=== PATIENT | male | born 1955 | race Caucasian/White ===

== ENCOUNTER → 2017-12-13 | Day surgery (SDC) | payer OTHER ==
[2017-12-10 10:45] VITALS: BMI 38.7
[~2017-12-13] MED LIST: MIDAZOLAM 2 MG/2 ML VIAL IVP ONE; PROPOFOL 10 MG/ML 20 ML VIAL IV ONE; SODIUM CHLORIDE 0.9% 500 ML IV ONE
[2017-12-13 12:38] VITALS: TEMP 97.6
--- NOTE | 2017-12-13 12:47 | CE ---
CARDIAC ELECTROPHYSIOLOGY REPORT DATE OF SERVICE: 12/13/2017 PROCEDURE: Electrical cardioversion. INDICATION: Persistent atrial fibrillation in a patient with hypertrophic nonobstructive cardiomyopathy and hypertension. PROCEDURE NOTE: Under the influence of ultra short-acting intravenous anesthetic agent with the attendance of the anesthesiologist, the patient was delivered a shock at 250 joules with anterior and posterior patches. He remained in atrial fibrillation and then a second shock of 300 joules was delivered in a synchronized fashion. He converted to sinus rhythm remained hemodynamically stable and neurologically intact. The cardioversion was successful on the second attempt. Patient will be on the same medications and I will discharge him later on today if he remains stable and ambulatory. He will be seen by me in the office on December 19. EKG revealed a sinus mechanism with PACs. Results were discussed with the patient's and patient also. CATHY / MERNA: [id number] /
[2017-12-13 13:06] LABS: Anion Gap 5 mmol/L; Blood Urea Nitrogen 18 mg/dL (9-20); Calcium 9.2 mg/dL (8.4-10.2); Carbon Dioxide 29 mmol/L (22-30); Chloride 107 mmol/L (98-107); Glucose 101 mg/dL (74-99); Potassium 4.2 mmol/L (3.5-5.1); Sodium 141 mmol/L (137-145)
[2017-12-13 13:46] VITALS: RESP 18
[2017-12-13 14:24] VITALS: BP 133/73; PULSE 70
== END ==
LOC: CATHCVL 11:02
PROVIDERS: ATTEND Internal Medicine Interventional Cardiology
DX: I48.1 Persistent atrial fibrillation (principal); I49.1 Atrial premature depolarization; I45.81 Long QT syndrome; I11.0 Hypertensive heart disease with heart failure; I50.32 Chronic diastolic (congestive) heart failure; I42.2 Other hypertrophic cardiomyopathy; E78.00 Pure hypercholesterolemia, unspecified; J44.9 Chronic obstructive pulmonary disease, unspecified; E66.01 Morbid (severe) obesity due to excess calories; Z68.39 Body mass index [BMI] 39.0-39.9, adult; K21.9 Gastro-esophageal reflux disease without esophagitis; Z79.01 Long term (current) use of anticoagulants; Z79.51 Long term (current) use of inhaled steroids; Z79.899 Other long term (current) drug therapy; Z82.49 Family history of ischemic heart disease and other diseases of the circulatory system; Z85.51 Personal history of malignant neoplasm of bladder; Z90.3 Acquired absence of stomach [part of]; Z88.1 Allergy status to other antibiotic agents; Z88.8 Allergy status to other drugs, medicaments and biological substances; Z72.0 Tobacco use
CPT/HCPCS: 92960; 80048; J2250; J2704